=== PATIENT | male | born 1980 | race Caucasian/White ===

== ENCOUNTER 2022-01-07 20:07 | Inpatient (IN) | payer OTHER ==
[2022-01-07] MEDS ORDERED: LOPERAMIDE HCL 2 MG CAPSULE PO PRN (21:24)
[2022-01-07] MEDS ORDERED: NICOTINE POLACRILEX 2 MG GUM BUC PRN (21:24)
[2022-01-07] MEDS ORDERED: MAGNESIUM HYDROX 2400MG/30ML ORAL SUSPENSION 30 ML CUP PO PRN (21:24)
[2022-01-07] MEDS ORDERED: BENZOCAINE/MENTHOL (CHLORASEPTIC ) LOZENGE MM PRN (21:24)
[2022-01-07] MEDS ORDERED: DICYCLOMINE HCL 10 MG CAPSULE PO PRN (21:24)
[2022-01-07] MEDS ORDERED: ONDANSETRON *ODT* 4 MG TABLET SL PRN (21:24)
[2022-01-07] MEDS ORDERED: IBUPROFEN 400 MG TABLET (FP) PO PRN (21:24)
[2022-01-07] MEDS ORDERED: MAG HYDROX/AL HYDROX/SIMETH 30 ML UNIT-DOSE CUP PO PRN (21:24)
[2022-01-07] MEDS ORDERED: NALOXONE HCL (KLOXXADO) 8 MG SPRAY NS PRN (21:24)
[2022-01-07] MEDS ORDERED: ACETAMINOPHEN 325 MG TABLET (FP) PO PRN ×2 (21:24)
[2022-01-07] MEDS ORDERED: P-EPHED 60MG/TRIPROLIDI 2.5MG TABLET PO PRN (21:24)
[2022-01-07] MEDS ORDERED: guaiFENesin 200 MG/10 ML 10 ML UNIT-DOSE CUPS PO PRN (21:24)
[2022-01-07] MEDS ORDERED: MAGNESIUM CITRATE 300 ML BOTTLE PO PRN (21:24)
[2022-01-07] MEDS ORDERED: IBUPROFEN 600 MG TABLET (FP) PO PRN (21:24)
[2022-01-07] MEDS ORDERED: MELATONIN 5 MG TABLETS PO SCH (22:00)
[2022-01-07] MEDS ORDERED: chlordiazePOXIDE HCL 25 MG CAPSULE ONE (22:26)
[2022-01-07 22:27] VITALS: BMI 30.5
[2022-01-07] MEDS: chlordiazePOXIDE HCL 25 MG CAPSULE PO SCH (22:32)
[2022-01-07] MEDS: THIAMINE HCL 100 MG TABLET (FP) PO SCH (23:07)
[2022-01-07] MEDS: METHOCARBAMOL 500 MG TABLET PO PRN (23:07)
[2022-01-08] MEDS: chlordiazePOXIDE HCL 25 MG CAPSULE PO PRN ×2 (01:52→13:49)
[2022-01-08] MEDS: chlordiazePOXIDE HCL 25 MG CAPSULE PO SCH ×4 (05:29→22:21)
[2022-01-08] MEDS: PRENATAL VITAMINS W/ FOLIC ACID TABLET (FP) PO SCH (10:32)
[2022-01-08] MEDS: NICOTINE 14 MG/24 HOURS TOPICAL PATCH TD SCH (10:32)
[2022-01-08] MEDS: METHOCARBAMOL 500 MG TABLET PO PRN (10:33)
[2022-01-08] MEDS ORDERED: amLODIPine BESYLATE 2.5 MG TABLET (FP) PO SCH (13:00)
[2022-01-08] MEDS: amLODIPine BESYLATE 5 MG TABLET (FP) PO SCH (17:23)
[2022-01-08] MEDS: THIAMINE HCL 100 MG TABLET (FP) PO SCH (22:21)
[2022-01-08] MEDS: MELATONIN 5 MG TABLETS PO SCH (22:21)
[2022-01-09] MEDS: chlordiazePOXIDE HCL 25 MG CAPSULE PO SCH ×4 (05:17→22:18)
[2022-01-09] MEDS: METHOCARBAMOL 500 MG TABLET PO PRN (05:17)
[2022-01-09] MEDS: amLODIPine BESYLATE 5 MG TABLET (FP) PO SCH (10:18)
[2022-01-09] MEDS: PRENATAL VITAMINS W/ FOLIC ACID TABLET (FP) PO SCH (10:18)
[2022-01-09] MEDS: NICOTINE 14 MG/24 HOURS TOPICAL PATCH TD SCH (10:19)
[2022-01-09 12:17] LABS: ALBUMIN 3.8 g/dl (3.4-5.0); BLOOD UREA NITROGEN 15.4 mg/dL (7-18); CALCIUM 9.1 mg/dL (8.5-10.1)
[2022-01-09 12:20] LABS: CREATININE 1.2 mg/dL (0.55-1.3)
[2022-01-09 12:22] LABS: TOT PROT 7.1 g/dl (6.4-8.2)
[2022-01-09 13:01] VITALS: RESP 18
[2022-01-09 15:03] LABS: HEMATOCRIT 42.9 % (35.4-49); HEMOGLOBIN 15.1 GM/dL (11.7-16.9); MCH 32.5 pg (25.7-33.7); MCHC 35.3 g/dl (32.0-35.9); MEAN CELL VOLUME 92.2 fl (80-96); MEAN PLT VOLUME 8.8 fl (7.5-11.1); PLATELET COUNT 168 10^3/uL (134-434); RBC 4.65 M/mm3 (4.00-5.60); RDW 13.1 % (11.9-15.9); WHITE BLOOD COUNT 3.9 K/mm3 (4.0-10.0)
[2022-01-09] MEDS ORDERED: cloNIDine HCL 0.1 MG TABLET PO ONE (18:03)
[2022-01-09] MEDS: THIAMINE HCL 100 MG TABLET (FP) PO SCH (22:17)
[2022-01-09] MEDS: MELATONIN 5 MG TABLETS PO SCH (22:17)
[2022-01-10] MEDS: chlordiazePOXIDE HCL 10 MG CAPSULE PO SCH ×4 (05:16→22:20)
[2022-01-10] MEDS: amLODIPine BESYLATE 5 MG TABLET (FP) PO SCH (10:18)
[2022-01-10] MEDS: PRENATAL VITAMINS W/ FOLIC ACID TABLET (FP) PO SCH (10:19)
[2022-01-10] MEDS: NICOTINE 14 MG/24 HOURS TOPICAL PATCH TD SCH (10:21)
[2022-01-10] MEDS: BISMUTH SUBSALICYLATE 524 MG/30 ML PO PRN (12:58)
[2022-01-10] MEDS: chlordiazePOXIDE HCL 10 MG CAPSULE PO PRN ×2 (14:32→19:32)
[2022-01-10] MEDS: METOPROLOL TARTRATE 25 MG TABLET (FP) PO SCH (17:34)
[2022-01-10] MEDS ORDERED: hydrOXYzine PAMOATE 25 MG CAPSULE (FP) PO PRN (21:05)
[2022-01-10] MEDS: THIAMINE HCL 100 MG TABLET (FP) PO SCH (22:20)
[2022-01-10] MEDS: MELATONIN 5 MG TABLETS PO SCH (22:21)
[2022-01-11] MEDS ORDERED: chlordiazePOXIDE HCL 10 MG CAPSULE PO SCH (05:00)
[2022-01-11] MEDS: BISMUTH SUBSALICYLATE 524 MG/30 ML PO PRN (06:09)
[2022-01-11 07:06] VITALS: TEMP 96
[2022-01-11 09:01] VITALS: BP 156/109; PULSE 100
[2022-01-11] MEDS: amLODIPine BESYLATE 5 MG TABLET (FP) PO SCH (10:48)
[2022-01-11] MEDS: NICOTINE 14 MG/24 HOURS TOPICAL PATCH TD SCH (10:48)
[2022-01-11] MEDS: METOPROLOL TARTRATE 25 MG TABLET (FP) PO SCH (10:48)
[2022-01-11] MEDS: PRENATAL VITAMINS W/ FOLIC ACID TABLET (FP) PO SCH (10:48)
[2022-01-12] MEDS ORDERED: chlordiazePOXIDE HCL 10 MG CAPSULE PO ONE (05:00)
== END 2022-01-11 09:50 | disposition home or self-care (01) | DRG 775 ==
LOC: YASAS 20:07 → Y6N 22:33
PROVIDERS: ADMIT Allergy & Immunology; ATTEND Surgery
PROC: HZ2ZZZZ Detoxification Services for Substance Abuse Treatment (ICD-10-PCS; principal; 2022-01-07)
DX: F10.230 Alcohol dependence with withdrawal, uncomplicated (principal); F12.20 Cannabis dependence, uncomplicated; F17.210 Nicotine dependence, cigarettes, uncomplicated; F19.282 Other psychoactive substance dependence with psychoactive substance-induced sleep disorder; F19.24 Other psychoactive substance dependence with psychoactive substance-induced mood disorder; F41.9 Anxiety disorder, unspecified; I10 Essential (primary) hypertension; E78.1 Pure hyperglyceridemia; Z91.14 Patient's other noncompliance with medication regimen
CPT/HCPCS: 36415; 80053; 85027; 86780; 87811; 93005; 93010; C9803-CS; U0003; U0005

== ENCOUNTER 2022-02-08 19:25 | Inpatient (IN) | payer OTHER ==
[2022-02-08 20:02] VITALS: BMI 29.8
[2022-02-08] MEDS ORDERED: IBUPROFEN 600 MG TABLET (FP) PO PRN (20:27)
[2022-02-08] MEDS ORDERED: ONDANSETRON *ODT* 4 MG TABLET SL PRN (20:27)
[2022-02-08] MEDS ORDERED: guaiFENesin 200 MG/10 ML 10 ML UNIT-DOSE CUPS PO PRN (20:27)
[2022-02-08] MEDS ORDERED: DICYCLOMINE HCL 10 MG CAPSULE PO PRN (20:27)
[2022-02-08] MEDS ORDERED: POLYETHYLENE GLYCOL (HEALTHYLAX) 3350 17 GM PACKET PO PRN (20:27)
[2022-02-08] MEDS ORDERED: ACETAMINOPHEN 325 MG TABLET (FP) PO PRN ×2 (20:27)
[2022-02-08] MEDS ORDERED: IBUPROFEN 400 MG TABLET (FP) PO PRN (20:27)
[2022-02-08] MEDS ORDERED: LOPERAMIDE HCL 2 MG CAPSULE PO PRN (20:27)
[2022-02-08] MEDS ORDERED: MAGNESIUM HYDROX 2400MG/30ML ORAL SUSPENSION 30 ML CUP PO PRN (20:27)
[2022-02-08] MEDS ORDERED: P-EPHED 60MG/TRIPROLIDI 2.5MG TABLET PO PRN (20:27)
[2022-02-08] MEDS ORDERED: MAG HYDROX/AL HYDROX/SIMETH 30 ML UNIT-DOSE CUP PO PRN (20:27)
[2022-02-08] MEDS ORDERED: BENZOCAINE/MENTHOL (CHLORASEPTIC ) LOZENGE MM PRN (20:27)
[2022-02-08] MEDS ORDERED: chlordiazePOXIDE HCL 25 MG CAPSULE PO ONE (20:29)
[2022-02-08] MEDS ORDERED: amLODIPine BESYLATE 5 MG TABLET (FP) PO SCH (20:30)
[2022-02-08] MEDS ORDERED: METOPROLOL TARTRATE 25 MG TABLET (FP) PO ONE ×2 (20:31→21:45)
[2022-02-08] MEDS ORDERED: METHOCARBAMOL 500 MG TABLET ONE (20:44)
[2022-02-08] MEDS ORDERED: METOPROLOL TARTRATE 25 MG TABLET (FP) ONE (20:44)
[2022-02-08] MEDS ORDERED: chlordiazePOXIDE HCL 25 MG CAPSULE ONE (20:44)
[2022-02-08] MEDS: METHOCARBAMOL 500 MG TABLET PO PRN (20:51)
[2022-02-08] MEDS: THIAMINE HCL 100 MG TABLET (FP) PO SCH (21:58)
[2022-02-08] MEDS: chlordiazePOXIDE HCL 25 MG CAPSULE PO SCH (23:03)
[2022-02-08] MEDS: MELATONIN 5 MG TABLETS PO PRN (23:05)
[2022-02-09] MEDS: chlordiazePOXIDE HCL 25 MG CAPSULE PO PRN ×2 (01:50→14:04)
[2022-02-09] MEDS: chlordiazePOXIDE HCL 25 MG CAPSULE PO SCH ×4 (05:26→22:21)
[2022-02-09] MEDS: PRENATAL VITAMINS W/ FOLIC ACID TABLET (FP) PO SCH (10:09)
[2022-02-09] MEDS: amLODIPine BESYLATE 5 MG TABLET (FP) PO SCH (10:10)
[2022-02-09 10:22] LABS: HEMATOCRIT 42.9 % (35.4-49); HEMOGLOBIN 15.4 GM/dL (11.7-16.9); MCH 32.1 pg (25.7-33.7); MCHC 35.8 g/dl (32.0-35.9); MEAN CELL VOLUME 89.6 fl (80-96); MEAN PLT VOLUME 8.3 fl (7.5-11.1); PLATELET COUNT 216 10^3/uL (134-434); RBC 4.79 M/mm3 (4.00-5.60); RDW 12.7 % (11.9-15.9); WHITE BLOOD COUNT 5.2 K/mm3 (4.0-10.0)
[2022-02-09 10:29] LABS: ALBUMIN 3.9 g/dl (3.4-5.0); CALCIUM 9.4 mg/dL (8.5-10.1)
[2022-02-09 10:30] LABS: BLOOD UREA NITROGEN 15.8 mg/dL (7-18)
[2022-02-09 10:32] LABS: CREATININE 1.1 mg/dL (0.55-1.3)
[2022-02-09 10:34] LABS: BILIRUBIN,TOTAL 1.2 mg/dL (0.2-1); TOT PROT 7.4 g/dl (6.4-8.2)
[2022-02-09] MEDS: hydrOXYzine PAMOATE 25 MG CAPSULE (FP) PO PRN (14:04)
[2022-02-09] MEDS: THIAMINE HCL 100 MG TABLET (FP) PO SCH (22:21)
[2022-02-09] MEDS: MELATONIN 5 MG TABLETS PO PRN (22:21)
[2022-02-10] MEDS: hydrOXYzine PAMOATE 25 MG CAPSULE (FP) PO PRN ×2 (02:27→10:20)
[2022-02-10] MEDS: BISMUTH SUBSALICYLATE 524 MG/30 ML PO PRN ×2 (03:42→10:42)
[2022-02-10] MEDS: chlordiazePOXIDE HCL 25 MG CAPSULE PO SCH ×4 (05:18→22:04)
[2022-02-10] MEDS: METHOCARBAMOL 500 MG TABLET PO PRN (10:20)
[2022-02-10] MEDS: amLODIPine BESYLATE 5 MG TABLET (FP) PO SCH (10:20)
[2022-02-10] MEDS: PRENATAL VITAMINS W/ FOLIC ACID TABLET (FP) PO SCH (10:20)
[2022-02-10 10:56] LABS: ALBUMIN 3.7 g/dl (3.4-5.0); BLOOD UREA NITROGEN 13.3 mg/dL (7-18); CALCIUM 8.8 mg/dL (8.5-10.1)
[2022-02-10 10:59] LABS: CREATININE 1.1 mg/dL (0.55-1.3)
[2022-02-10 11:01] LABS: BILIRUBIN,TOTAL 1.1 mg/dL (0.2-1); TOT PROT 6.9 g/dl (6.4-8.2)
[2022-02-10] MEDS ORDERED: cloNIDine HCL 0.1 MG TABLET PO ONE (11:43)
[2022-02-10] MEDS: THIAMINE HCL 100 MG TABLET (FP) PO SCH (22:04)
[2022-02-10] MEDS: MELATONIN 5 MG TABLETS PO PRN (22:04)
[2022-02-11] MEDS ORDERED: chlordiazePOXIDE HCL 10 MG CAPSULE PO PRN
[2022-02-11] MEDS: hydrOXYzine PAMOATE 25 MG CAPSULE (FP) PO PRN ×2 (03:45→22:08)
[2022-02-11] MEDS: METHOCARBAMOL 500 MG TABLET PO PRN ×3 (03:45→22:09)
[2022-02-11] MEDS: chlordiazePOXIDE HCL 10 MG CAPSULE PO SCH ×4 (05:23→22:11)
[2022-02-11] MEDS: PRENATAL VITAMINS W/ FOLIC ACID TABLET (FP) PO SCH (10:28)
[2022-02-11] MEDS: amLODIPine BESYLATE 5 MG TABLET (FP) PO SCH (10:29)
[2022-02-11] MEDS: BISMUTH SUBSALICYLATE 524 MG/30 ML PO PRN (14:29)
[2022-02-11 17:02] VITALS: RESP 16
[2022-02-11] MEDS: MELATONIN 5 MG TABLETS PO PRN (22:08)
[2022-02-11] MEDS: THIAMINE HCL 100 MG TABLET (FP) PO SCH (22:08)
[2022-02-12] MEDS ORDERED: chlordiazePOXIDE HCL 10 MG CAPSULE PO SCH (05:00)
[2022-02-12] MEDS: hydrOXYzine PAMOATE 25 MG CAPSULE (FP) PO PRN (05:25)
[2022-02-12 05:34] VITALS: BP 140/94; PULSE 105; TEMP 98.2
[2022-02-13] MEDS ORDERED: chlordiazePOXIDE HCL 10 MG CAPSULE PO ONE (05:00)
== END 2022-02-12 10:03 | disposition home or self-care (01) | DRG 775 ==
LOC: YASAS 19:25 → Y3N 21:26
PROVIDERS: ADMIT Allergy & Immunology; ATTEND Family Medicine Addiction Medicine
PROC: HZ2ZZZZ Detoxification Services for Substance Abuse Treatment (ICD-10-PCS; principal; 2022-02-08)
DX: F10.230 Alcohol dependence with withdrawal, uncomplicated (principal); F41.9 Anxiety disorder, unspecified; E78.5 Hyperlipidemia, unspecified; I10 Essential (primary) hypertension; R73.9 Hyperglycemia, unspecified; R94.5 Abnormal results of liver function studies; Z87.891 Personal history of nicotine dependence
CPT/HCPCS: 36415; 80053; 82947; 82962; 83036; 85027; 86780; 87811; C9803-CS; U0003; U0005